=== PATIENT | male | born 1980 | race Caucasian/White ===

== ENCOUNTER 2019-05-08 11:24 | Inpatient (IN) | payer SELFPAY, MEDICAID ==
[~2019-05-08] VITALS: Ht 175.3 cm; Wt 98.2 kg
[~2019-05-08 11:24] MED LIST: ABIL10TA OR; HYDR-4274 PO; LITHOBID PO; NAPR-885 PO; No Historical Meds; No meds at discharge; PERC7.5T12 PO; Risperdal PO; SUBOXONE; TRAZ-257 PO; TRAZ100T2 PO; TRAZ50TA OR; VICO5TAB PO; ZOLO50TA PO
[2019-05-08] MEDS ORDERED: METOPROLOL TART 50 MG TAB PO ONE (11:45)
[2019-05-08] MEDS ORDERED: LORazepam 2 MG TAB PO STA (11:57)
[2019-05-08 11:58] LABS: HEMATOCRIT 40.9 % (42.0-52.0); MEAN CORPUSCULAR HEMOGLOBIN 30.6 pg (27.0-33.0); MEAN CORPUSCULAR HGB CONC 34.2 g/dl (32.0-36.5); MEAN CORPUSCULAR VOLUME 89.3 fl (80.0-96.0); PLATELET COUNT, AUTOMATED 249 10^3/uL (150-450); RED BLOOD COUNT 4.58 10^6/uL (4.30-6.10); WHITE BLOOD COUNT 9.9 10^3/uL (4.0-10.0)
[2019-05-08 12:37] LABS: ACETAMINOPHEN LEVEL < 2.0 UG/ML (10.0-30.0); ALBUMIN 3.5 GM/DL (3.2-5.2); ALT/SGPT 29 U/L (12-78); BILIRUBIN,DIRECT 0.2 MG/DL (0.0-0.2); BILIRUBIN,TOTAL 0.4 MG/DL (0.2-1.0); BLOOD UREA NITROGEN 8 MG/DL (7-18); CALCIUM LEVEL 8.7 MG/DL (8.5-10.1); CARBON DIOXIDE LEVEL 27 MEQ/L (21-32); CHLORIDE LEVEL 108 MEQ/L (98-107); CREATININE FOR GFR 0.85 MG/DL (0.70-1.30); ETHYL ALCOHOL (ETHANOL) < 0.003 % (0.000-0.010); GLOMERULAR FILTRATION RATE > 60.0 (>60); GLUCOSE, FASTING 86 MG/DL (70-100); POTASSIUM SERUM 3.9 MEQ/L (3.5-5.1); SALICYLATE LEVEL < 1.7 MG/DL (5.0-30.0); SODIUM LEVEL 140 MEQ/L (136-145); TOTAL PROTEIN 6.8 GM/DL (6.4-8.2)
[2019-05-08 12:57] LABS: AMPHETAMINES LEVEL URINE POSITIVE (NEGATIVE); BARBITURATES URINE NEGATIVE (NEGATIVE); BENZODIAZEPINES URINE POSITIVE (NEGATIVE); CANNABINOIDS URINE NEGATIVE (NEGATIVE); COCAINE METABOLITE URINE NEGATIVE (NEGATIVE); METHADONE URINE NEGATIVE (NEGATIVE); OPIATES URINE NEGATIVE (NEGATIVE); PHENCYCLIDINE URINE NEGATIVE (NEGATIVE)
[2019-05-08] MEDS ORDERED: SERO1TAB PO (15:05)
[2019-05-08] MEDS ORDERED: TRAZ-252 PO (15:05)
[2019-05-08] MEDS ORDERED: CONC36TA4 PO (15:05)
[2019-05-08] MEDS ORDERED: METO1TAB33 PO (15:05)
[2019-05-08 16:56] VITALS: BP 131/90
[2019-05-08] MEDS ORDERED: ACETAMINOPHEN TAB 650MG DOSE (2X325MG) PO PRN (17:15)
[2019-05-08] MEDS ORDERED: MOM 30ML SUSPENSION UDC PO PRN (17:15)
[2019-05-08] MEDS ORDERED: traZODone 50 MG TAB PO PRN (17:15)
[2019-05-08] MEDS ORDERED: MAALOX 30 ML SUSP *UDC PO PRN (17:15)
[2019-05-08] MEDS ORDERED: hydrOXYzine 50 MG TAB PO PRN (18:45)
[2019-05-08] MEDS ORDERED: NICOTINE POLACRILEX 2 MG GUM PO PRN (18:45)
[2019-05-08] MEDS ORDERED: OLANZapine ORAL DISINTEGRATING TAB 5MG PO PRN (18:45)
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
--- NOTE | 2019-05-09 14:21 | IPNPDOC ---
Text Note Date of Service Attempted to see the pt on 05/09/19. NOTE Patient declined to be seen. VS,Fishbone, I+O VS, Fishbone, I+O Vital Signs Date Time Temp Pulse Resp B/P (MAP) Pulse Ox O2 Delivery O2 Flow Rate FiO2 05/09/19 09:01 Room Air 05/08/19 16:56 90 18 131/90 (104) 97 05/08/19 11:31 97.5 LUIS A HENRY PA-C May 09, 2019 14:21
[2019-05-09] MEDS ORDERED: LORazepam 1 MG TAB PO STA (16:15)
[2019-05-09] MEDS ORDERED: LORazepam 1 MG TAB PO ONE (20:30)
[2019-05-09] MEDS ORDERED: QUEtiapine FUMARATE 50 MG TAB PO SCH (21:00)
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
== END 2019-05-10 11:38 | disposition home or self-care (01) | DRG 755 ==
LOC: M ED 11:24 → M ED INP 17:04 → M PSY 18:00
PROVIDERS: ADMIT Psychiatry & Neurology Psychiatry; ATTEND Psychiatry & Neurology Psychiatry
DX: F43.25 Adjustment disorder with mixed disturbance of emotions and conduct (principal); R45.851 Suicidal ideations; F15.14 Other stimulant abuse with stimulant-induced mood disorder; Z79.899 Other long term (current) drug therapy; Z91.013 Allergy to seafood

== ENCOUNTER 2019-05-10 14:10 | Emergency (ER) | payer MEDICAID, OTHER, SELFPAY ==
[~2019-05-10] VITALS: Ht 175.3 cm; Wt 100.0 kg
[~2019-05-10 14:10] MED LIST changes: +CONC36TA4 PO; +METO1TAB33 PO; +SERO1TAB PO; +TRAZ-252 PO
[2019-05-10 14:19] VITALS: BP 118/65
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
== END 2019-05-10 14:53 | disposition home or self-care (01) ==
LOC: M ED 14:10
DX: Z76.5 Malingerer [conscious simulation] (principal); F41.9 Anxiety disorder, unspecified; Z91.013 Allergy to seafood; Z79.899 Other long term (current) drug therapy

== ENCOUNTER 2019-06-19 14:44 | Inpatient (IN) | payer MEDICAID, SELFPAY ==
[~2019-06-19] VITALS: Ht 175.3 cm; Wt 99.3 kg
[2019-06-19 15:46] LABS: HEMATOCRIT 47.5 % (42.0-52.0); HEMOGLOBIN 16.3 g/dl (13.5-17.5); MEAN CORPUSCULAR HGB CONC 34.3 g/dl (32.0-36.5); MEAN CORPUSCULAR VOLUME 87.5 fl (80.0-96.0); PLATELET COUNT, AUTOMATED 379 10^3/uL (150-450); RED BLOOD COUNT 5.43 10^6/uL (4.30-6.10); WHITE BLOOD COUNT 8.6 10^3/uL (4.0-10.0)
[2019-06-19 16:09] LABS: AMPHETAMINES LEVEL URINE NEGATIVE (NEGATIVE); BARBITURATES URINE NEGATIVE (NEGATIVE); BENZODIAZEPINES URINE NEGATIVE (NEGATIVE); CANNABINOIDS URINE NEGATIVE (NEGATIVE); COCAINE METABOLITE URINE NEGATIVE (NEGATIVE); METHADONE URINE NEGATIVE (NEGATIVE); OPIATES URINE NEGATIVE (NEGATIVE); PHENCYCLIDINE URINE NEGATIVE (NEGATIVE)
[2019-06-19 16:22] LABS: ACETAMINOPHEN LEVEL < 2.0 UG/ML (10.0-30.0); ALBUMIN 3.6 GM/DL (3.2-5.2); ALT/SGPT 24 U/L (12-78); BILIRUBIN,DIRECT 0.1 MG/DL (0.0-0.2); BILIRUBIN,TOTAL 0.3 MG/DL (0.2-1.0); BLOOD UREA NITROGEN 8 MG/DL (7-18); CARBON DIOXIDE LEVEL 30 MEQ/L (21-32); CHLORIDE LEVEL 105 MEQ/L (98-107); CREATININE FOR GFR 1.07 MG/DL (0.70-1.30); ETHYL ALCOHOL (ETHANOL) < 0.003 % (0.000-0.010); GLOMERULAR FILTRATION RATE > 60.0 (>60); GLUCOSE, FASTING 98 MG/DL (70-100); POTASSIUM SERUM 4.1 MEQ/L (3.5-5.1); SALICYLATE LEVEL < 1.7 MG/DL (5.0-30.0); SODIUM LEVEL 140 MEQ/L (136-145); TOTAL PROTEIN 7.2 GM/DL (6.4-8.2)
[2019-06-19] MEDS ORDERED: MOM 30ML SUSPENSION UDC PO PRN (19:45)
[2019-06-19] MEDS ORDERED: LORazepam 2 MG TAB PO PRN (19:45)
[2019-06-19] MEDS ORDERED: MAALOX 30 ML SUSP *UDC PO PRN (19:45)
[2019-06-19] MEDS ORDERED: ACETAMINOPHEN TAB 650MG DOSE (2X325MG) PO PRN (19:45)
[2019-06-19] MEDS ORDERED: traZODone 50 MG TAB PO PRN (19:45)
[2019-06-19] MEDS: THIAMINE 100 MG TAB PO SCH (21:00)
[2019-06-19 23:28] VITALS: BP 142/90
[2019-06-19 23:33] VITALS: BP 142/90
[2019-06-19] MEDS: OLANZapine ORAL DISINTEGRATING TAB 5MG PO PRN (23:49)
[2019-06-20 06:38] VITALS: BP 152/102
[2019-06-20] MEDS ORDERED: CONC36TA4 PO (07:06)
[2019-06-20] MEDS: MULTIVITAMINS/MINERALS THERAP 1 TAB PO SCH (08:37)
[2019-06-20] MEDS: THIAMINE 100 MG TAB PO SCH ×2 (08:37→21:02)
[2019-06-20] MEDS: FOLIC ACID 1 MG TAB PO SCH (08:37)
[2019-06-20] MEDS ORDERED: METOPROLOL SUCC (TopROL XL) 100MG *XL* TAB PO SCH (09:00)
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
[2019-06-20] MEDS ORDERED: OLANZapine ORAL DISINTEGRATING TAB 5MG PO ONE (11:00)
[2019-06-20] MEDS: OLANZapine ORAL DISINTEGRATING TAB 5MG PO SCH ×2 (11:15→21:02)
--- NOTE | 2019-06-20 14:25 | HPEPDOC ---
General Date of Admission Jun 19, 2019 at 19:36 Date of Service: Jun 20, 2019 Chief Complaint The patient is a 39-year-old male admitted with a reason for visit of Unspecified Depressive Disorder. Source: Patient Exam Limitations: No limitations Timing/Duration: Other (not applicable) Severity: Other (not applicable) Associated Symptoms: Other (none) History of Present Illness 39 years old male with frequent admissions to inpatient mental health unit again admitted with the chief complaints of making suicidal intentions and homicidal intention over the phone while calling the clinic. Patient has not been taking his meds recently. Patient offers no medical complaints at the present time Home Medications Scheduled Methylphenidate HCl (Concerta) 36 Mg Tab.er.24, 36 MG PO DAILY for ., (Reported) Metoprolol Succinate (Metoprolol Succinate) 100 Mg Tab.er.24h, 100 MG PO DAILY for ., (Reported) PT HAS NOT FILLED MED SINCE 01/10 Allergies Coded Allergies: FISH (Verified Allergy, Severe, anaphylaxis, 05/08/19) shellfish derived (Verified Allergy, Severe, anaphylaxis, 05/08/19) Past Medical History Medical History Back pain, headache and hypertension Surgical History None Social History * Smoker: current smoker Alcohol: Denies Drugs: marijuana A-FIB/CHADSVASC A-FIB History Current/History of A-Fib/PAF?: No Review of Systems Constitutional: Denies: Chills, Fever, Malaise, Night Sweats, Weakness, Fatigue, Weight Loss, Lethargy, Other Eyes: Denies: Pain, Vision change, Conjunctivae inflammation, Eyelid inflammation, Redness, Other ENT: Denies: Head Aches, Ear Pain, Dysphagia, Sinus Congestion, Post Nasal Drip, Sore Throat, Epistaxis, Other Symptoms Skin: Denies: Rash, Lesions, Jaundice, Bruising, Itching, Dry, Breakdown, Nail Changes, Other Pulmonary: Denies: Dyspnea, Cough, Pleuritic Chest Pain, Other Symptoms Cardiovascular: Denies: Chest Pain, Palpitations, Orthopnea, Paroxysmal Noc. Dyspnea, Edema, Lt Headedness, Other Symptoms Gastrointestinal: Denies: Nausea, Vomiting, Abdominal Pain, Diarrhea, Constipation, Melena, Hematochezia, Other Symptoms Hematologic: Denies: Bruising, Bleeding Excessively, Petecchia, Purpura, Enlarged Lymph Nodes, Other Hematologic Endocrine: Denies: Polydipsia, Polyphagia, Polyuria, Heat Intolerance, Cold Intolerance, Other Endocrine Sx Musculoskeletal: Denies: Neck Pain, Back Pain, Shoulder Pain, Arm Pain, Hand Pain, Leg Pain, Foot Pain, Joint Pain, Muscle Pain, Spasms, Other Symptoms Neurological: Denies: Weakness, Numbness, Incoordination, Change in speech, Confusion, Seizures, Other Symptoms Psych: Denies: Mood Normal, Anxiety, Depression, Memory Issues, Thoughts of Self Harm, Anger, Thoughts of Harming Other, Other Psych Physical Examination Eye Exam: Positive: PERRLA ENT Exam: Positive: Atraumatic, Mucous membr. moist/pink Chest Exam: Positive: Clear to auscultation, Normal air movement Heart Exam: Positive: Rate Normal, Normal S1, Normal S2 Abdomen Exam: Positive: Normal bowel sounds, Soft Extremity Exam: Positive: Normal pulses Skin Exam: Positive: Nl turgor and temperature Neuro Exam: Positive: Strength at 5/5 X4 ext, Cranial Nerves 3-12 NL, Reflexes 2+ Vital Signs Vital Signs Date Time Temp Pulse Resp B/P (MAP) Pulse Ox O2 Delivery O2 Flow Rate FiO2 06/20/19 10:00 Room Air 06/20/19 06:38 98.4 83 12 152/102 (119) 99 Laboratory Data Labs 24H Laboratory Tests 2 06/19/19 15:33: Nucleated Red Blood Cells % (auto) 0.0, Anion Gap 5L, Glomerular Filtration Rate > 60.0, Calcium Level 9.0, Total Bilirubin 0.3, Direct Bilirubin 0.1, Aspartate Amino Transf (AST/SGOT) 14, Alanine Aminotransferase (ALT/SGPT) 24, Alkaline Phosphatase 124H, Total Protein 7.2, Albumin 3.6, Albumin/Globulin Ratio 1.00, Thyroid Stimulating Hormone (TSH) 1.680, Salicylates Level < 1.7L, Urine Opiates Screen NEGATIVE, Urine Methadone Screen NEGATIVE, Acetaminophen Level < 2.0L, Urine Barbiturates Screen NEGATIVE, Urine Phencyclidine Screen NEGATIVE, Urine Amphetamines Screen NEGATIVE, Urine Benzodiazepines Screen NEGATIVE, Urine Cocaine Metabolite Screen NEGATIVE, Urine Cannabinoids Screen NEGATIVE, Ethyl Alcohol Level < 0.003 CBC/BMP Laboratory Tests 06/19/19 15:33 Problems (1) Suicidal ideation Status: Acute Problem Text: Patient admitted to inpatient mental health unit with suicidal and homicidal ideations Patient is a frequent admissions to inpatient mental health unit with similar complaints as he is noncompliant to his meds Individual and group counseling, as per psychiatry Pharmacology l intervention as per psych (2) HTN (hypertension) Status: Chronic Problem Text: We will continue patient's home antihypertensive meds metoprolol XL 100 mg by mouth daily , Will adjust medication dosage according to patient's vital signs (3) Back pain Status: Chronic Problem Text: History of chronic back pain , Tylenol when necessary Plan / VTE VTE Prophylaxis Ordered?: No VTE Exclusion Mechanical Proph: Low Risk for VTE VTE Exclusion Pharmacological: At Low Risk for VTE TAVO SHARMA MD Jun 20, 2019 14:25
[2019-06-20 17:23] VITALS: BP 133/90
[2019-06-20] MEDS: METOPROLOL TART 25 MG TABLET PO SCH (21:02)
[2019-06-21 00:58] VITALS: BP 133/90
[2019-06-21 06:18] VITALS: BP 114/96
[2019-06-21] MEDS: MULTIVITAMINS/MINERALS THERAP 1 TAB PO SCH (08:18)
[2019-06-21] MEDS: METOPROLOL TART 25 MG TABLET PO SCH ×2 (08:18→21:48)
[2019-06-21] MEDS: THIAMINE 100 MG TAB PO SCH ×2 (08:18→21:47)
[2019-06-21] MEDS: OLANZapine ORAL DISINTEGRATING TAB 5MG PO SCH (08:18)
[2019-06-21] MEDS: FOLIC ACID 1 MG TAB PO SCH (08:18)
[2019-06-21 09:00] VITALS: BP 138/72
[2019-06-21 09:15] VITALS: BP 138/72
--- NOTE | 2019-06-21 09:57 | MHIPNPDOC ---
[facility] Progress Note Progress Note Inpatient Progress Note Jaren Gallagher MRN: N/A Date of : N/A Date of Service: 06/21/2019 History of Present Illness The patient a 39-year-old man with a long history of drug use and antisocial personality traits presents for suicidal thoughts. He reports that he has not been using drugs. When he is attempted to be met with the patient does not engage in any meaningful interview other than saying he is uncomfortable speaking. He does report some paranoid thoughts, however this is all that is able to be gleaned from the interview. The patient's information abstracted from previous hospital records and updated as appropriate. Interval History The patient is met with today where he reports that he is still having difficulty focusing, feeling irritable and anxious, he reports that he has had difficulty yelling at people and feeling generally on edge. He reports that Zyprexa has not changed any of this. He is interested on being resumed on his methylphenidate. He is generally difficult to interview as he is quite irritable and requires a very delicate approach. He has been irritable on the unit but not aggressive per staff, although he does have some statements that could suggest more antisocial personality. Review Of Systems Is unable to describe any specific side effects. Psychotherapy None on this visit. Vital Signs Reviewed. Mental Status Examination General: Fair hygiene. Speech: Sparse. Thought processes: Linear and logical MSK: Smooth and coordinated gait, no signs of tremors or involuntary orofacial movements Thought content: Unknown. Abstract reasoning, and computation: Intact Description of associations: Intact Description of abnormal or psychotic thoughts: Unknown. Judgment: Limited. Insight: Limited. Orientation: Alert and orientated 3 Cognition: Grossly normal Recent and remote memory: Intact Attention span and concentration: Intact Fund of knowledge: Adequate Mood: "I do not know" Affect: Mildly irritable. Diagnoses Unspecified depressive disorder. Methamphetamine use disorder, severe. Nicotine use disorder, mild. Cannabis use disorder, severe. Benzodiazepine use disorder, unspecified. Antisocial personality disorder versus TBI. Assessment and Plan Unspecified depressive disorder: We will try Trileptal 150 mg BID as a mood stabilizer. We will resume patient's home Concerta, unclear if related to depression or possible TBI. ADHD is potential, however, unclear due to patient's antisocial personality. Meth, nicotine benzodiazepine use disorder: Recommend rehabilitation. Antisocial personality disorder: Aggression precautions. Disposition Patient will need to be retained further for treatment as he is still quite irritable and has a long history of admissions, needing a complex discharge plan. Time Spent 15 minutes. Wednesday Vital Signs Vital Signs Date Time Temp Pulse Resp B/P (MAP) Pulse Ox O2 Delivery O2 Flow Rate FiO2 06/21/19 08:18 96 132/85 06/21/19 06:18 97.9 16 93 Room Air Current Medications Current Medications Medications (Trade) Dose Ordered Sig/Juliet Route PRN Reason Start Time Stop Time Status Last Admin Dose Admin Acetaminophen (Tylenol Tab) 650 mg Q6HP PRN PO HEADACHE or DISCOMFORT 06/19/19 19:45 Al Hydrox/Mg Hydrox/Simethicone (Mylanta) 30 ml Q4HP PRN PO HEARTBURN/INDIGESTION 06/19/19 19:45 Folic Acid (Folic Acid) 1 mg DAILY PO 06/20/19 09:00 06/21/19 08:18 Home Med (Med Rec Complete!) ASDIRECTED XX 06/20/19 07:15 06/20/19 07:10 DC Lorazepam (Ativan) 2 mg ASDIRECTED PRN PO SEE PROTOCOL 06/19/19 19:45 Magnesium Hydroxide (Milk Of Magnesia) 30 ml DAILYPRN PRN PO CONSTIPATION 06/19/19 19:45 Metoprolol Succinate (TopROL XL) 100 mg DAILY PO 06/20/19 09:00 06/20/19 16:30 DC Metoprolol Tartrate (Lopressor) 25 mg BID PO 06/20/19 21:00 06/21/19 08:18 Multivitamins (Theragram-M) 1 tab DAILY PO 06/20/19 09:00 06/21/19 08:18 Nicotine (Nicoderm Cq 14mg) 1 patch DAILYPRN PRN TD NICOTINE WITHDRAWAL 06/19/19 23:45 Olanzapine (ZyPREXA ZYDIS) 5 mg BID PO 06/20/19 09:00 06/21/19 08:18 Olanzapine (ZyPREXA ZYDIS) 5 mg Q4HP PRN PO ANXIETY/AGITATION 06/19/19 23:45 06/19/19 23:49 Thiamine HCl (Thiamine HCl) 100 mg BID PO 06/19/19 21:00 06/22/19 09:01 06/21/19 08:18 Trazodone HCl (Desyrel) 50 mg QHSP PRN PO INSOMNIA 06/19/19 19:45 Allergies Coded Allergies: FISH (Verified Allergy, Severe, anaphylaxis, 05/08/19) shellfish derived (Verified Allergy, Severe, anaphylaxis, 05/08/19) NITIN FOWLER DO Jun 21, 2019 09:57
[2019-06-21] MEDS: OLANZapine ORAL DISINTEGRATING TAB 5MG PO PRN (12:54)
[2019-06-21 16:20] VITALS: BP 130/84
[2019-06-21] MEDS: OXcarbazepine 150 MG TAB PO SCH (21:47)
[2019-06-22 06:24] VITALS: BP 134/98
[2019-06-22] MEDS: MULTIVITAMINS/MINERALS THERAP 1 TAB PO SCH (09:13)
[2019-06-22] MEDS: FOLIC ACID 1 MG TAB PO SCH (09:13)
[2019-06-22] MEDS: THIAMINE 100 MG TAB PO SCH (09:13)
[2019-06-22] MEDS: METOPROLOL TART 25 MG TABLET PO SCH ×2 (09:13→20:24)
[2019-06-22] MEDS: METHYLPHENIDATE ER 18 MG TABLET (CONCERTA) PO SCH (09:14)
--- NOTE | 2019-06-22 09:48 | MHIPNPDOC ---
[facility] Progress Note Progress Note Inpatient Progress Note Jaren Gallagher MRN: N/A Date of : N/A Date of Service: 06/22/2019 History of Present Illness The patient a 39-year-old man with a long history of drug use and antisocial personality traits presents for suicidal thoughts. He reports that he has not been using drugs. When he is attempted to be met with the patient does not engage in any meaningful interview other than saying he is uncomfortable speaking. He does report some paranoid thoughts, however this is all that is able to be gleaned from the interview. The patient's information abstracted from previous hospital records and updated as appropriate. Interval History The patient was met with today. He reports that he has noticed some less anxiety and was able to get out of bed somewhat today. He reports that he has had a little more motivation. The staff reports the patient still is irritable at times, but has had no major behavioral problems overnight. He has begun to engage in treatment a little more. He reports slight irritation and difficulty with racing thoughts. Review Of Systems Denies any physical side effects at this time. Psychotherapy None on this visit. Vital Signs Reviewed. Mental Status Examination General: Fair hygiene. Speech: Sparse. Thought processes: Linear and logical MSK: Smooth and coordinated gait, no signs of tremors or involuntary orofacial movements Thought content: Irritation. Abstract reasoning, and computation: Intact Description of associations: Intact Description of abnormal or psychotic thoughts: Reports significant irritation but no homicidal thoughts. Judgment: Limited. Insight: Limited. Orientation: Alert and orientated 3 Cognition: Grossly normal Recent and remote memory: Intact Attention span and concentration: Intact Fund of knowledge: Adequate Mood: "I guess better" Affect: Mildly irritable. Diagnoses Unspecified depressive disorder. Methamphetamine use disorder, severe. Nicotine use disorder, mild. Cannabis use disorder, severe. Benzodiazepine use disorder, unspecified. Antisocial personality disorder versus TBI. Assessment and Plan Unspecified depressive disorder: Continue Trileptal 150 mg BID as well as his home Concerta. Meth, nicotine benzodiazepine use disorder: Recommend rehabilitation. Antisocial personality disorder: Aggression precautions. Disposition Patient will need to be retained further for treatment as he is still quite irritable and has a long history of admissions, needing a complex discharge plan . Time Spent 15 minutes. Vital Signs Vital Signs Date Time Temp Pulse Resp B/P (MAP) Pulse Ox O2 Delivery O2 Flow Rate FiO2 4/30/20 09:13 85 134/98 06/22/19 08:54 Room Air 06/22/19 06:24 98.1 18 97 Current Medications Current Medications Medications (Trade) Dose Ordered Sig/Juliet Route PRN Reason Start Time Stop Time Status Last Admin Dose Admin Acetaminophen (Tylenol Tab) 650 mg Q6HP PRN PO HEADACHE or DISCOMFORT 06/19/19 19:45 Al Hydrox/Mg Hydrox/Simethicone (Mylanta) 30 ml Q4HP PRN PO HEARTBURN/INDIGESTION 06/19/19 19:45 Folic Acid (Folic Acid) 1 mg DAILY PO 06/20/19 09:00 06/22/19 09:13 Home Med (Med Rec Complete!) ASDIRECTED XX 06/20/19 07:15 06/20/19 07:10 DC Lorazepam (Ativan) 2 mg ASDIRECTED PRN PO SEE PROTOCOL 06/19/19 19:45 Cancel Magnesium Hydroxide (Milk Of Magnesia) 30 ml DAILYPRN PRN PO CONSTIPATION 06/19/19 19:45 Methylphenidate HCl (Concerta) 36 mg DAILY PO 06/22/19 09:00 06/22/19 09:14 Metoprolol Succinate (TopROL XL) 100 mg DAILY PO 06/20/19 09:00 06/20/19 16:30 DC Metoprolol Tartrate (Lopressor) 25 mg BID PO 06/20/19 21:00 06/22/19 09:13 Multivitamins (Theragram-M) 1 tab DAILY PO 06/20/19 09:00 06/22/19 09:13 Nicotine (Nicoderm Cq 14mg) 1 patch DAILYPRN PRN TD NICOTINE WITHDRAWAL 06/19/19 23:45 Olanzapine (ZyPREXA ZYDIS) 5 mg BID PO 06/20/19 09:00 06/21/19 16:08 DC 06/21/19 08:18 Olanzapine (ZyPREXA ZYDIS) 5 mg Q4HP PRN PO ANXIETY/AGITATION 06/19/19 23:45 06/21/19 12:54 Oxcarbazepine (Trileptal) 150 mg QHS PO 06/21/19 21:00 06/21/19 21:47 Thiamine HCl (Thiamine HCl) 100 mg BID PO 06/19/19 21:00 06/22/19 09:01 DC 06/22/19 09:13 Trazodone HCl (Desyrel) 50 mg QHSP PRN PO INSOMNIA 06/19/19 19:45 Allergies Coded Allergies: FISH (Verified Allergy, Severe, anaphylaxis, 05/08/19) shellfish derived (Verified Allergy, Severe, anaphylaxis, 05/08/19) NITIN FOWLER DO Jun 22, 2019 09:48
[2019-06-22] MEDS: OLANZapine ORAL DISINTEGRATING TAB 5MG PO PRN ×3 (10:01→20:24)
[2019-06-22 18:46] VITALS: BP 160/90
[2019-06-22] MEDS: OXcarbazepine 150 MG TAB PO SCH (20:24)
[2019-06-22 20:46] VITALS: BP 133/81
[2019-06-23 06:49] VITALS: BP 148/92
[2019-06-23] MEDS: FOLIC ACID 1 MG TAB PO SCH (08:19)
[2019-06-23] MEDS: METOPROLOL TART 25 MG TABLET PO SCH ×2 (08:19→20:21)
[2019-06-23] MEDS: MULTIVITAMINS/MINERALS THERAP 1 TAB PO SCH (08:19)
[2019-06-23] MEDS: METHYLPHENIDATE ER 18 MG TABLET (CONCERTA) PO SCH (08:19)
--- NOTE | 2019-06-23 09:25 | MHIPNPDOC ---
[facility] Progress Note Progress Note Inpatient Progress Note Jaren Gallagher MRN: N/A Date of : N/A Date of Service: 06/23/2019 History of Present Illness The patient a 39-year-old man with a long history of drug use and antisocial personality traits presents for suicidal thoughts. He reports that he has not been using drugs. When he is attempted to be met with the patient does not engage in any meaningful interview other than saying he is uncomfortable speaking. He does report some paranoid thoughts, however this is all that is able to be gleaned from the interview. The patient's information abstracted from previous hospital records and updated as appropriate. Interval History The patient is met with today. He reports he is feeling better and he reports that he is for the first time gotten out of bed spontaneously. He reports that he is feeling more leveled, but is making some progress. He reports he still has some anxiety, but has been making a lot more progress with much less irritability. He reports that he feels better overall. Staff report that he is still irritable although somewhat less so. Review Of Systems Denies any particular side effects from the medication. Psychotherapy None on this visit. Vital Signs Reviewed. Mental Status Examination General: Fair hygiene. Speech: Sparse. Thought processes: Linear and logical MSK: Smooth and coordinated gait, no signs of tremors or involuntary orofacial movements Thought content: Irritation. Abstract reasoning, and computation: Intact Description of associations: Intact Description of abnormal or psychotic thoughts: Reports significant irritation but no homicidal thoughts. Judgment: Limited. Insight: Limited. Orientation: Alert and orientated 3 Cognition: Grossly normal Recent and remote memory: Intact Attention span and concentration: Intact Fund of knowledge: Adequate Mood: "I guess better" Affect: Mildly irritable. Diagnoses Unspecified depressive disorder. Methamphetamine use disorder, severe. Nicotine use disorder, mild. Cannabis use disorder, severe. Benzodiazepine use disorder, unspecified. Antisocial personality disorder versus TBI. Assessment and Plan Unspecified depressive disorder: Continue Trileptal 150 mg BID as well as his home Concerta. Meth, nicotine benzodiazepine use disorder: Recommend rehabilitation. Antisocial personality disorder: Aggression precautions. Disposition We'll monitor over the weekend possible discharge on Wednesday if continues to improve. Time Spent 15 minutes. Wednesday Vital Signs Vital Signs Date Time Temp Pulse Resp B/P (MAP) Pulse Ox O2 Delivery O2 Flow Rate FiO2 06/23/19 08:19 72 143/94 06/23/19 06:49 98.8 14 95 Room Air Current Medications Current Medications Medications (Trade) Dose Ordered Sig/Juliet Route PRN Reason Start Time Stop Time Status Last Admin Dose Admin Acetaminophen (Tylenol Tab) 650 mg Q6HP PRN PO HEADACHE or DISCOMFORT 06/19/19 19:45 Al Hydrox/Mg Hydrox/Simethicone (Mylanta) 30 ml Q4HP PRN PO HEARTBURN/INDIGESTION 06/19/19 19:45 Folic Acid (Folic Acid) 1 mg DAILY PO 06/20/19 09:00 06/23/19 08:19 Home Med (Med Rec Complete!) ASDIRECTED XX 06/20/19 07:15 06/20/19 07:10 DC Lorazepam (Ativan) 2 mg ASDIRECTED PRN PO SEE PROTOCOL 06/19/19 19:45 Cancel Magnesium Hydroxide (Milk Of Magnesia) 30 ml DAILYPRN PRN PO CONSTIPATION 06/19/19 19:45 Methylphenidate HCl (Concerta) 36 mg DAILY PO 06/22/19 09:00 06/23/19 08:19 Metoprolol Succinate (TopROL XL) 100 mg DAILY PO 06/20/19 09:00 06/20/19 16:30 DC Metoprolol Tartrate (Lopressor) 25 mg BID PO 06/20/19 21:00 06/23/19 08:19 Multivitamins (Theragram-M) 1 tab DAILY PO 06/20/19 09:00 06/23/19 08:19 Nicotine (Nicoderm Cq 14mg) 1 patch DAILYPRN PRN TD NICOTINE WITHDRAWAL 06/19/19 23:45 Olanzapine (ZyPREXA ZYDIS) 5 mg BID PO 06/20/19 09:00 06/21/19 16:08 DC 06/21/19 08:18 Olanzapine (ZyPREXA ZYDIS) 5 mg Q4HP PRN PO ANXIETY/AGITATION 06/19/19 23:45 06/22/19 20:24 Oxcarbazepine (Trileptal) 150 mg QHS PO 06/21/19 21:00 06/22/19 20:24 Thiamine HCl (Thiamine HCl) 100 mg BID PO 06/19/19 21:00 06/22/19 09:01 DC 06/22/19 09:13 Trazodone HCl (Desyrel) 50 mg QHSP PRN PO INSOMNIA 06/19/19 19:45 06/22/19 20:24 Allergies Coded Allergies: FISH (Verified Allergy, Severe, anaphylaxis, 05/08/19) shellfish derived (Verified Allergy, Severe, anaphylaxis, 05/08/19) NITIN FOWLER DO June 23, 2019 09:24
[2019-06-23] MEDS: hydrOXYzine 25 MG TAB PO PRN ×2 (10:42→16:45)
[2019-06-23] MEDS: OLANZapine ORAL DISINTEGRATING TAB 5MG PO PRN ×2 (12:09→19:12)
[2019-06-23] MEDS: NICOTINE 14 MG/24 HR TRANSDERMAL TD PRN (15:49)
[2019-06-23 16:47] VITALS: BP 123/84
[2019-06-23] MEDS: OXcarbazepine 150 MG TAB PO SCH (20:21)
[2019-06-24 06:22] VITALS: BP 139/99
[2019-06-24] MEDS: METOPROLOL TART 25 MG TABLET PO SCH ×2 (09:34→21:57)
[2019-06-24] MEDS: METHYLPHENIDATE ER 18 MG TABLET (CONCERTA) PO SCH (09:34)
[2019-06-24] MEDS: MULTIVITAMINS/MINERALS THERAP 1 TAB PO SCH (09:34)
[2019-06-24] MEDS: FOLIC ACID 1 MG TAB PO SCH (09:34)
[2019-06-24] MEDS: OLANZapine ORAL DISINTEGRATING TAB 5MG PO PRN ×2 (11:56→17:52)
[2019-06-24 16:31] VITALS: BP 135/87
[2019-06-24] MEDS: OXcarbazepine 150 MG TAB PO SCH (21:57)
[2019-06-25 06:00] VITALS: BP 140/89
[2019-06-25] MEDS: MULTIVITAMINS/MINERALS THERAP 1 TAB PO SCH (08:11)
[2019-06-25] MEDS: METHYLPHENIDATE ER 18 MG TABLET (CONCERTA) PO SCH (08:11)
[2019-06-25] MEDS: OLANZapine ORAL DISINTEGRATING TAB 5MG PO PRN ×3 (08:11→18:28)
[2019-06-25] MEDS: METOPROLOL TART 25 MG TABLET PO SCH ×2 (08:11→20:03)
[2019-06-25] MEDS: FOLIC ACID 1 MG TAB PO SCH (08:11)
[2019-06-25 16:26] VITALS: BP 136/84
[2019-06-25] MEDS: OXcarbazepine 150 MG TAB PO SCH (20:03)
[2019-06-26 06:25] VITALS: BP 140/94
[2019-06-26] MEDS: FOLIC ACID 1 MG TAB PO SCH (08:16)
[2019-06-26] MEDS: METOPROLOL TART 25 MG TABLET PO SCH ×2 (08:16→20:13)
[2019-06-26] MEDS: MULTIVITAMINS/MINERALS THERAP 1 TAB PO SCH (08:16)
[2019-06-26] MEDS: OLANZapine ORAL DISINTEGRATING TAB 5MG PO PRN ×3 (08:16→17:35)
[2019-06-26] MEDS: METHYLPHENIDATE ER 18 MG TABLET (CONCERTA) PO SCH (08:16)
--- NOTE | 2019-06-26 09:14 | MHIPNPDOC ---
[facility] Progress Note Progress Note Inpatient Progress Note Jaren Gallagher MRN: N/A Date of : N/A Date of Service: 06/26/2019 History of Present Illness The patient a 39-year-old man with a long history of drug use and antisocial personality traits presents for suicidal thoughts. He reports that he has not been using drugs. When he is attempted to be met with the patient does not engage in any meaningful interview other than saying he is uncomfortable speaking. He does report some paranoid thoughts, however this is all that is able to be gleaned from the interview. The patient's information abstracted from previous hospital records and updated as appropriate. Interval History The patient was attempted to be met with today. However, he reports he is too agitate to meet as he was fairly upset that he was not given Ativan again over the weekend. He does continue to have difficulty engaging in meaningful interviews, but does generally report that the medicine is somewhat helpful at times. He asked to be interviewed tomorrow, this is a pattern with him and he generally engages minimally in treatment. He was initially unsure as to whether this provider would discharge him if he refused. Review Of Systems No physical side effects alluded to. Psychotherapy None on this visit. Vital Signs Reviewed. Mental Status Examination General: Fair hygiene. Speech: Sparse. Thought processes: Linear and logical MSK: Smooth and coordinated gait, no signs of tremors or involuntary orofacial movements Thought content: Irritation. Abstract reasoning, and computation: Intact Description of associations: Intact Description of abnormal or psychotic thoughts: Reports significant irritation and angry thoughts. Judgment: Limited. Insight: Limited. Orientation: Alert and orientated 3 Cognition: Grossly normal Recent and remote memory: Intact Attention span and concentration: Intact Fund of knowledge: Adequate Mood: "I can't do this today" Affect: Mildly irritable. Diagnoses Unspecified impulse/conduct disorder. Methamphetamine use disorder, severe. Nicotine use disorder, mild. Cannabis use disorder, severe. Benzodiazepine use disorder, unspecified. Antisocial personality disorder versus TBI. Assessment and Plan Unspecified impulse/conduct disorder: Continue Trileptal 150 mg as well as home Concerta. Meth, nicotine benzodiazepine use disorder: Recommend rehabilitation. Antisocial personality disorder: Will continue to monitor for any signs of malingering as he does have a benzodiazepine use disorder and will not be granted benzodiazepines. Will give him propranolol 10 mg TID PRN for anxiety as appropriate. Disposition Will continue to monitor. However, patient is generally minimally engaged in treatment and will likely need to be engaged more thoroughly or perhaps discharge with maximum benefit. Time Spent 15 minutes. Wednesday Vital Signs Vital Signs Date Time Temp Pulse Resp B/P (MAP) Pulse Ox O2 Delivery O2 Flow Rate FiO2 06/26/19 08:16 91 155/94 06/26/19 06:25 97.2 12 98 Room Air Current Medications Current Medications Medications (Trade) Dose Ordered Sig/Juliet Route PRN Reason Start Time Stop Time Status Last Admin Dose Admin Acetaminophen (Tylenol Tab) 650 mg Q6HP PRN PO HEADACHE or DISCOMFORT 06/19/19 19:45 06/25/19 13:02 Al Hydrox/Mg Hydrox/Simethicone (Mylanta) 30 ml Q4HP PRN PO HEARTBURN/INDIGESTION 06/19/19 19:45 Folic Acid (Folic Acid) 1 mg DAILY PO 06/20/19 09:00 06/26/19 08:16 Home Med (Med Rec Complete!) ASDIRECTED XX 06/20/19 07:15 06/20/19 07:10 DC Hydroxyzine HCl (Atarax) 25 mg Q6HP PRN PO ANXIETY 06/23/19 10:00 06/23/19 21:41 DC 06/23/19 16:45 Lorazepam (Ativan) 2 mg ASDIRECTED PRN PO SEE PROTOCOL 06/19/19 19:45 Cancel Magnesium Hydroxide (Milk Of Magnesia) 30 ml DAILYPRN PRN PO CONSTIPATION 06/19/19 19:45 Methylphenidate HCl (Concerta) 36 mg DAILY PO 06/22/19 09:00 06/26/19 08:16 Metoprolol Succinate (TopROL XL) 100 mg DAILY PO 06/20/19 09:00 06/20/19 16:30 DC Metoprolol Tartrate (Lopressor) 25 mg BID PO 06/20/19 21:00 06/26/19 08:16 Multivitamins (Theragram-M) 1 tab DAILY PO 06/20/19 09:00 06/26/19 08:16 Nicotine (Nicoderm Cq 14mg) 1 patch DAILYPRN PRN TD NICOTINE WITHDRAWAL 06/19/19 23:45 06/23/19 15:49 Olanzapine (ZyPREXA ZYDIS) 5 mg BID PO 06/20/19 09:00 06/21/19 16:08 DC 06/21/19 08:18 Olanzapine (ZyPREXA ZYDIS) 5 mg Q4HP PRN PO ANXIETY/AGITATION 06/19/19 23:45 06/26/19 08:16 Oxcarbazepine (Trileptal) 150 mg QHS PO 06/21/19 21:00 06/23/19 09:55 DC 06/22/19 20:24 Oxcarbazepine (Trileptal) 300 mg QHS PO 06/23/19 21:00 06/25/19 20:03 Thiamine HCl (Thiamine HCl) 100 mg BID PO 06/19/19 21:00 06/22/19 09:01 DC 06/22/19 09:13 Trazodone HCl (Desyrel) 50 mg QHSP PRN PO INSOMNIA 06/19/19 19:45 06/22/19 20:24 Allergies Coded Allergies: FISH (Verified Allergy, Severe, anaphylaxis, 05/08/19) shellfish derived (Verified Allergy, Severe, anaphylaxis, 05/08/19) NITIN FOWLER DO June 26, 2019 09:14
[2019-06-26] MEDS ORDERED: PROPRANOLOL 20 MG TAB PO PRN (11:30)
[2019-06-26] MEDS: PROPRANOLOL 10 MG TAB PO PRN ×2 (11:46→17:35)
[2019-06-26 15:39] VITALS: BP 158/85
[2019-06-26] MEDS: NICOTINE 14 MG/24 HR TRANSDERMAL TD PRN (15:52)
[2019-06-26] MEDS: OXcarbazepine 150 MG TAB PO SCH (20:13)
[2019-06-27 06:21] VITALS: BP 142/102
[2019-06-27 08:59] VITALS: BP 176/91
[2019-06-27] MEDS: METHYLPHENIDATE ER 18 MG TABLET (CONCERTA) PO SCH (08:59)
[2019-06-27] MEDS: METOPROLOL TART 25 MG TABLET PO SCH (08:59)
[2019-06-27] MEDS: MULTIVITAMINS/MINERALS THERAP 1 TAB PO SCH (08:59)
[2019-06-27] MEDS: FOLIC ACID 1 MG TAB PO SCH (08:59)
--- NOTE | 2019-06-27 09:46 | MHDSPDOC ---
[facility] Discharge Summary Discharge Summary DATE OF ADMISSION: Jun 19, 2019 at 19:36 DATE OF DISCHARGE: 06/27/19 Discharge Jaren Gallagher MRN: [id number] Date of : N/A Date of Service: 06/27/2019 Diagnoses Unspecified impulse/conduct disorder. Methamphetamine use disorder, severe. Nicotine use disorder, mild. Cannabis use disorder, severe. Benzodiazepine use disorder, unspecified. Antisocial personality disorder versus TBI. Malingering. History of Present Illness The patient a 39-year-old man with a long history of drug use and antisocial personality traits presents for suicidal thoughts. He reports that he has not been using drugs. When he is attempted to be met with the patient does not engage in any meaningful interview other than saying he is uncomfortable speaking. He does report some paranoid thoughts, however this is all that is able to be gleaned from the interview. The patient's information abstracted from previous hospital records and updated as appropriate. Consultants Involved Hospitalist/PCP screening Treatment and Progress On The Unit The patient was admitted to the inpatient mental health unit. He was notably irritable, but primarily was behavioral. He was treated appropriately with Trileptal increased to 300 mg total in a day spread through BID dose. He was then resumed on his home Concerta dose and made some progress. However, he was quite interested in getting Ativan and was upset whenever he would not have that. The patient did make some progress, but generally was irritable and cooperative little with treatment preferring to not engage in treatment in general. The patient generally had this pattern and when he realized he would not get Ativan or Adderall as he had specifically requested, he subsequently requested discharge and was uninterested in further care, further suggesting malingering. Discharge Assessment 39-year-old man with antisocial personality disorder and inhibition problems, presents likely malingering for Ativan and Adderall. He make some progress with Trileptal; however, he appears primarily interested in attempting to gain controlled substances. He requests discharge and does not meet involuntary criteria as he is at his baseline level of mental status and insight, he has not been threatening toward the staff for several days and generally is just irritable, which is his baseline level from his previous admission. I believe his diagnosis is primary malingering and he declines further voluntary admission and thus will be discharged in good tanja. Mental Status Examination General: Well dressed with good hygiene Speech: Spontaneous and fluid Thought processes: Linear and logical MSK: Smooth and coordinated gait, no signs of tremors or involuntary orofacial movements Thought content: Future orientated Abstract reasoning, and computation: Intact Description of associations: Intact Description of abnormal or psychotic thoughts: Denies any suicidal or homicidal ideation. Denies any auditory or visual hallucinations. Does not appear to be responding to internal stimuli. Does not appear to be endorsing any bizarre or paranoid ideation. Judgment: Limited Insight: Limited Orientation: Alert and orientated 3 Cognition: Grossly normal Recent and remote memory: Intact Attention span and concentration: Intact Fund of knowledge: Adequate Mood: "okay" Affect: Euthymic with a full range Follow Up The social work team worked during the predischarge meeting in order to evaluate for further issues of lethality address them fully before discharge. They worked on safety planning with the patient's family members in order to ensure that the patient will have a safe and effective discharge. Time Spent The amount of time spent in the coordination of care for this patient was approximately 45 minutes. Wednesday Vital Signs/I&Os Vital Signs Date Time Temp Pulse Resp B/P (MAP) Pulse Ox O2 Delivery O2 Flow Rate FiO2 06/27/19 08:59 96 176/91 06/27/19 06:21 97.3 12 98 Room Air Medications Scheduled Methylphenidate HCl (Concerta) 36 Mg Tab.er.24, 36 MG PO DAILY for ., (Reported) Metoprolol Succinate (Metoprolol Succinate) 100 Mg Tab.er.24h, 100 MG PO DAILY for ., (Reported) PT HAS NOT FILLED MED SINCE 01/10 Oxcarbazepine (Oxcarbazepine) 150 Mg Tablet, 300 MG PO QHS for mood for 7 Days, #14 Scheduled PRN Nicotine (Nicotine Patch) 14 Mg Patch.td24, 1 PATCH TD DAILYPRN PRN for NICOTINE WITHDRAWAL for 30 Days, #30 Allergies Coded Allergies: FISH (Verified Allergy, Severe, anaphylaxis, 05/08/19) shellfish derived (Verified Allergy, Severe, anaphylaxis, 05/08/19) NITIN FOWLER DO June 27, 2019 09:46
[2019-06-27] MEDS ORDERED: NICO14PA TD (10:27)
[2019-06-27] MEDS ORDERED: OXCA150T21 PO (10:27)
[2019-06-27] MEDS ORDERED: PROP10TA56 PO (10:27)
== END 2019-06-27 12:50 | disposition home or self-care (01) | DRG 758 ==
LOC: M ED 14:44 → M ED INP 19:36 → M PSY 23:04
PROVIDERS: ADMIT Psychiatry & Neurology Addiction Medicine; ATTEND Psychiatry & Neurology Addiction Medicine
DX: F63.9 Impulse disorder, unspecified (principal); R45.850 Homicidal ideations; R45.851 Suicidal ideations; Z91.19 Patient's noncompliance with other medical treatment and regimen; F91.8 Other conduct disorders; F15.90 Other stimulant use, unspecified, uncomplicated; F17.200 Nicotine dependence, unspecified, uncomplicated; F60.2 Antisocial personality disorder; Z76.5 Malingerer [conscious simulation]; Z79.899 Other long term (current) drug therapy; Z91.013 Allergy to seafood; I10 Essential (primary) hypertension; M54.5 Low back pain

== ENCOUNTER 2019-09-20 17:06 | Inpatient (IN) | payer MEDICAID, OTHER ==
[~2019-09-20 17:06] MED LIST changes: +NICO14PA TD; +OXCA150T21 PO; +PROP10TA56 PO
[2019-09-20] MEDS ORDERED: diphenhydrAMINE 50MG/ML VIAL (J1200) ONE (17:23)
[2019-09-20] MEDS ORDERED: HALOPERIDOL 5MG/ML VIAL (J1630 PER 1) ONE (17:23)
[2019-09-20] MEDS ORDERED: diphenhydrAMINE 50MG/ML VIAL (J1200) As Ordered ONE (17:23)
[2019-09-20] MEDS ORDERED: HALOPERIDOL 5MG/ML VIAL (J1630 PER 1) As Ordered ONE (17:23)
[2019-09-20] MEDS ORDERED: LORazepam 2 MG/ML VIAL ONE (17:23)
[2019-09-20] MEDS ORDERED: LORazepam 2 MG/ML VIAL As Ordered ONE (17:24)
[2019-09-23] MEDS ORDERED: OLANZapine 10 MG TAB ONE (10:16)
[2019-09-23] MEDS ORDERED: OLANZapine 10 MG TAB As Ordered ONE (10:16)
[2019-09-23] MEDS ORDERED: NICOTINE POLACRILEX 2 MG GUM ONE (10:58)
[2019-09-23] MEDS ORDERED: NICOTINE POLACRILEX 2 MG GUM As Ordered ONE (10:58)
[2019-09-24] MEDS ORDERED: OLANZapine 5 MG TAB ONE (11:44)
[2019-09-24] MEDS ORDERED: OLANZapine 5 MG TAB As Ordered ONE (11:44)
[2019-09-24] MEDS ORDERED: NICOTINE POLACRILEX 2 MG GUM ONE ×2 (11:44→18:47)
[2019-09-24] MEDS ORDERED: NICOTINE POLACRILEX 2 MG GUM As Ordered ONE ×2 (11:45→18:48)
[2019-09-24] MEDS ORDERED: OLANZapine 10 MG TAB As Ordered ONE (18:47)
[2019-09-24] MEDS ORDERED: OLANZapine 10 MG TAB ONE (18:47)
[2019-09-25] MEDS ORDERED: OLANZapine ORAL DISINTEGRATING TAB 5MG As Ordered ONE (11:12)
[2019-09-25] MEDS ORDERED: NICOTINE POLACRILEX 2 MG GUM As Ordered ONE (11:12)
[2019-09-25] MEDS ORDERED: NICOTINE POLACRILEX 2 MG GUM ONE (11:12)
[2019-09-25] MEDS ORDERED: OLANZapine ORAL DISINTEGRATING TAB 5MG ONE (11:12)
[2019-10-29 09:15] LABS: HEMATOCRIT 44.6 % (42.0-52.0); HEMOGLOBIN 15.2 g/dl (13.5-17.5); MEAN CORPUSCULAR HEMOGLOBIN 30.1 pg (27.0-33.0); MEAN CORPUSCULAR HGB CONC 34.1 g/dl (32.0-36.5); MEAN CORPUSCULAR VOLUME 88.3 fl (80.0-96.0); PLATELET COUNT, AUTOMATED 270 10^3/uL (150-450); RED BLOOD COUNT 5.05 10^6/uL (4.30-6.10); WHITE BLOOD COUNT 8.4 10^3/uL (4.0-10.0)
[2019-10-30 21:42] LABS: AMPHETAMINES LEVEL URINE POSITIVE (NEGATIVE); BARBITURATES URINE NEGATIVE (NEGATIVE); BENZODIAZEPINES URINE NEGATIVE (NEGATIVE); CANNABINOIDS URINE NEGATIVE (NEGATIVE); COCAINE METABOLITE URINE NEGATIVE (NEGATIVE); METHADONE URINE NEGATIVE (NEGATIVE); OPIATES URINE NEGATIVE (NEGATIVE); PHENCYCLIDINE URINE NEGATIVE (NEGATIVE)
[2019-10-30 21:55] LABS: ACETAMINOPHEN LEVEL < 2.0 UG/ML (10.0-30.0); ALBUMIN 3.6 GM/DL (3.2-5.2); ALT/SGPT 34 U/L (12-78); BILIRUBIN,DIRECT < 0.1 MG/DL (0.0-0.2); BILIRUBIN,TOTAL 0.2 MG/DL (0.2-1.0); BLOOD UREA NITROGEN 14 MG/DL (7-18); CARBON DIOXIDE LEVEL 25 MEQ/L (21-32); CHLORIDE LEVEL 108 MEQ/L (98-107); CREATININE FOR GFR 0.88 MG/DL (0.70-1.30); ETHYL ALCOHOL (ETHANOL) < 0.003 % (0.000-0.010); GLOMERULAR FILTRATION RATE > 60.0 (>60); GLUCOSE, FASTING 84 MG/DL (70-100); POTASSIUM SERUM 3.8 MEQ/L (3.5-5.1); SALICYLATE LEVEL < 1.7 MG/DL (5.0-30.0); SODIUM LEVEL 141 MEQ/L (136-145); TOTAL PROTEIN 7.3 GM/DL (6.4-8.2)
--- NOTE | 2019-11-22 14:29 | MHIPN ---
DATE: 09/24/2019 The patient today tells me that he is doing better. He says that he slept well. It sounds like he is communicating with his girlfriend through his mother and it is still a possibility that apparently they might continue their relationship and so he is feeling better, denying any homicidal thoughts. MENTAL STATUS EXAMINATION: This patient is alert and oriented times three. Eye contact is good. He is verbally spontaneous. There is no formal thought disorder noted. Mood is good. Affect full range and appropriate. He is not psychotic, suicidal, or homicidal. Concentration and memory is good. Insight and judgment is fair. DIAGNOSIS: Unspecified psychotic disorder. TREATMENT PLAN: We will continue to monitor the patient for continued resolution of his symptoms and suicidal ideation and continued stabilization of his mood. The plan is to discharge him once stable. HERMINIAD
--- NOTE | 2019-11-22 14:35 | MHIPN ---
DATE: 09/23/2019 The patient today states Im feeling better. He says he is no longer having homicidal ideations towards the girlfriend and not having any suicidal ideations. He says he slept well. MENTAL STATUS EXAMINATION: This patient is alert and oriented times three. Eye contact fair. Psychomotor activity is normal. There is no formal thought disorder noted. He says his mood is better. Affect is restricted but appropriate to mood. He is not psychotic. He denies suicidal or homicidal ideations. Concentration is fair. Insight and judgment fair. DIAGNOSIS: Unspecified depressive disorder. TREATMENT PLAN: We will continue the patient on observation for continued elevation of his mood, stabilization, and resolution of suicidal ideations. DIANA
== END 2019-09-25 10:17 | disposition home or self-care (01) | DRG 758 ==
LOC: M ED 17:06 → M PSY 17:07
PROVIDERS: ADMIT Psychiatry & Neurology Psychiatry; ATTEND Psychiatry & Neurology Psychiatry
DX: F63.9 Impulse disorder, unspecified (principal); R45.850 Homicidal ideations; F60.2 Antisocial personality disorder; F19.10 Other psychoactive substance abuse, uncomplicated